=== PATIENT | female | born 1995 | race Two or more races ===

== ENCOUNTER 2020-01-23 09:41 | Outpatient (CLI) | payer OTHER | END 2020-01-23 10:44 | disposition home or self-care (01) | LOC: SONOGRAMA 09:41 → MAMO-SONO 10:45 | PROVIDERS: ATTEND Obstetrics & Gynecology Gynecology | DX: D25.0 Submucous leiomyoma of uterus (principal) ==

== ENCOUNTER 2020-02-18 07:17 | Day surgery (SDC) | payer OTHER ==
[~2020-02-18 07:17] MED LIST: SPRINTEC 28 DA1 EACH PO
[2020-02-18] MEDS ORDERED: AUGMENTIN XR 11 EACH PO (11:59)
[2020-02-18] MEDS ORDERED: IBU800 MG PO (11:59)
[2020-02-18] MEDS ORDERED: PREMARIN1.25 MG PO (11:59)
== END 2020-02-18 20:15 | disposition home or self-care (01) ==
LOC: CIR.AMB 07:17 → ADM 09:30 → CIR.AMB 14:00 → ADM 14:00 → CIR.AMB 20:15
PROVIDERS: ATTEND Obstetrics & Gynecology Gynecology
DX: D25.0 Submucous leiomyoma of uterus (principal); Z20.828 Contact with and (suspected) exposure to other viral communicable diseases